=== PATIENT | male | born 1950 | race American Indian/Alaskan Native ===

== ENCOUNTER 2018-06-01 08:14 | Outpatient (CLI) | payer MEDICARE ==
--- NOTE | 2018-06-01 10:19 | Fluoroscopy Report ---
BARIUM SWALLOW: History: Dysphagia. The patient swallows barium without difficulty demonstrating normal coordination. The cervical and thoracic portions of the esophagus demonstrate normal contours and there is normal peristalsis. There is no evidence of a hiatus hernia and no reflux is demonstrated. 28 fluoroscopic images were captured during this exam. IMPRESSION: Normal study.
== END 2018-06-01 08:15 | disposition home or self-care (01) ==
LOC: FLUORO 08:14
PROVIDERS: ATTEND Internal Medicine
DX: R13.10 Dysphagia, unspecified (principal)
CPT/HCPCS: 74220